=== PATIENT | female | born 1940 | race Caucasian/White ===

== ENCOUNTER → 2017-08-28 | Outpatient (CLI) | payer MEDICARE, OTHER ==
[~2017-08-28] MED LIST: CLON1 PO; METH1TAB2 PO
[2017-08-28 10:07] LABS: AUTOMATED NEUTROPHIL # 4.8 TH/MM3 (1.8-7.7); BASOPHIL % 0.6 % (0.0-2.0); EOSINOPHIL # 0.2 TH/MM3 (0-0.4); EOSINOPHIL % 2.2 % (0.0-4.0); HEMATOCRIT 40.8 % (35.0-46.0); HEMOGLOBIN 13.4 GM/DL (11.6-15.3); LYMPH % 35.6 % (9.0-44.0); LYMPHOCYTE # 3.1 TH/MM3 (1.0-4.8); MEAN CELL VOLUME 81.6 FL (80.0-100.0); MEAN CORPUSCULAR HEMOGLOBIN 26.9 PG (27.0-34.0); MEAN CORPUSCULAR HGB CONC 32.9 % (32.0-36.0); MEAN PLATELET VOLUME 11.1 FL (7.0-11.0); MONO % 6.4 % (0.0-8.0); MONOCYTE # 0.6 TH/MM3 (0-0.9); NEUT % 55.2 % (16.0-70.0); PLATELET COUNT 126 TH/MM3 (150-450); RED CELL DISTRIBUTION WIDTH 14.8 % (11.6-17.2); WHITE BLOOD COUNT 8.6 TH/MM3 (4.0-11.0)
[2017-08-28 10:17] LABS: INTERNATIONAL NORMALIZED RATIO 1.1 RATIO; PROTHROMBIN TIME - PATIENT 11.4 SEC (9.8-11.6)
[2017-08-28 10:31] LABS: BICARBONATE 24.7 MEQ/L (21.0-32.0); CALCIUM 8.8 MG/DL (8.5-10.1); CREATININE 0.86 MG/DL (0.50-1.00)
== END ==
LOC: CLAB 09:33
PROVIDERS: ATTEND Internal Medicine Hematology
DX: D69.6 Thrombocytopenia, unspecified (principal); R16.1 Splenomegaly, not elsewhere classified; R19.4 Change in bowel habit
CPT/HCPCS: 80048; 85025; 85610; 85730

== ENCOUNTER 2017-09-02 06:14 | Day surgery (SDC) | payer MEDICARE, OTHER ==
[~2017-09-02] VITALS: Ht 165.1 cm; Wt 65.0 kg
[2017-09-02] VITALS (12 sets, daily range): BP systolic 94–127; BP diastolic 52–70; PULSE 59–82; RESP 18–20; TEMP 97.2–97.6; O2SAT 92–96
[2017-09-02] MEDS ORDERED: METH1TAB2 PO (06:52)
[2017-09-02] MEDS ORDERED: CLON1 PO (06:52)
[2017-09-02] MEDS: SODIUM CHLOR 0.9% 1000 ML INJ 1,000 ML IV SCH (07:17)
[2017-09-02] MEDS ORDERED: MIDAZOLAM HCL 2 MG/2 ML VIAL ONE ×3 (08:05→14:35)
--- NOTE | 2017-09-02 08:48 | PD.RAD ---
Post CT Procedure Prog Note Pre Procedure Diagnosis: (1) Left upper lobe consolidation Post Procedure Diagnosis: (1) Left upper lobe consolidation Procedure Date: Sep 02, 2017 Supervising Radiologist: Jasbir Rajan Anesthesia: Conscious Sedation Plan of Activity Patient to Unit: ROPU Patient Condition: Good See PACS Report for procedural detail/treatment Biopsy Imaging Guidance: CT Side: Left Biopsy Procedure: Lung Site: left upper lobe Specimen: Core Biopsy Additional Detail: 7 cores obtained. Plan to ROPU for monitoring with cxr in one hour. Jasbir Rajan MD Sep 02, 2017 08:48
--- NOTE | 2017-09-02 09:56 | RADRPT ---
EXAM DATE: 09/02/2017 9:16 AM EDT AGE/SEX: 76 years / Female INDICATIONS: Left lung mass CLINICAL DATA: This is the patient's initial encounter. Patient reports that signs and symptoms have been present for 1 day and indicates a pain score of 0/10. MEDICAL/SURGICAL HISTORY: Chronic obstructive pulmonary disease. None. COMPARISON: [facility], PET/CT TUMOR, 09/01/2017. POI, CT CHEST W/ CONTRAST, 08/15/2017. . SEDATION TIME (min): 20 min BIOPSY SITE: Left lung MEDICATION(S): 3 midazolam (Versed) IV 100 fentanyl (Sublimaze) IV DEVICE(S): 19 gauge Introducer 20 gauge BARD biopsy needle Seven . . PROCEDURE: CT guided Left lung biopsy Prior to the procedure informed consent was obtained. Any appropriate prior imaging studies were rev iewed. Using automated exposure control and adjustment of the mA and/or kV according to patient size , radiation dose was kept as low as reasonably achievable to obtain optimal diagnostic quality images . DICOM format image data is available electronically for review and comparison. The site was prepped in a sterile fashion. Full sterile technique was used, including cap, mask, jailene rile gloves and gown and a large sterile sheet. Hand hygiene and 2% chlorhexidine and/or betadine/al cohol prep was utilized per protocol for cutaneous antisepsis. The skin and subcutaneous tissues wer e infiltrated with local anesthetic solution. With CT guidance the left upper lobe consolidative mass was localized. Biopsy was performed using the prescribed needle as above. Adequate hemostasis was obtained with compression at the puncture site. Follow-up CT scan reveals minimal left pneumothorax. There is perilesional hemorrhage. Conscious sedation was performed with the prescribed dosages and duration as above in the presence of an independent trained radiology nurse to assist in the monitoring of the patient. EKG and oximetry remained stable throughout the procedure. The patient tolerated the procedure well and there were no complications. The patient was sent to Radiology Outpatient Unit in stable condition. CONCLUSION: 1. Uncomplicated CT guided biopsy of the left upper lobe consolidative mass. Given the appearance an d patient history, samples were saved for pathology including RPMI and microbiology. Electronically signed by: Jasbir Rajan MD 09/02/2017 9:55 AM EDT
--- NOTE | 2017-09-02 10:24 | RADRPT ---
EXAM DATE: 09/02/2017 10:18 AM EDT AGE/SEX: 76 years / Female INDICATIONS: Evaluate for pneumothorax post left lung biopsy CLINICAL DATA: This is the patient's subsequent encounter. Patient reports that signs and symptoms h ave been present for 1 day and indicates a pain score of 0/10. MEDICAL/SURGICAL HISTORY: . lung mass None. COMPARISON: No prior [facility] exams available for comparison. FINDINGS: Portable AP upright expiratory view of the chest demonstrates minimal left apical pneumothorax follow ing recent left upper lobe lung mass biopsy. The left upper lobe opacity remains visualized. CONCLUSION: Minimal pneumothorax following left lung biopsy. An additional follow-up chest x-ray will be obtained . Electronically signed by: Jasbir Rajan MD 09/02/2017 10:22 AM EDT
--- NOTE | 2017-09-02 12:12 | RADRPT ---
EXAM DATE: 09/02/2017 12:06 PM EDT AGE/SEX: 76 years / Female INDICATIONS: post left lung biopsy evaluate for pneumothorax CLINICAL DATA: This is the patient's subsequent encounter. Patient reports that signs and symptoms h ave been present for 1 day and indicates a pain score of 0/10. MEDICAL/SURGICAL HISTORY: Carcinoma, lung. Chronic obstructive pulmonary disease. None. COMPARISON: [facility] – [place], CHEST EXPIRATION ONLY, 09/02/2017. . FINDINGS: Portable upright expiratory view of the chest demonstrates a small left apical pneumothorax, slightly increased in size from the prior study. The left upper lobe airspace opacity remains visualized. The re are no signs of tension. CONCLUSION: The small left pneumothorax has slightly increased in size. Additional follow-up chest x-ray will be obtained. Electronically signed by: Jasbir Rajan MD 09/02/2017 12:10 PM EDT
--- NOTE | 2017-09-02 14:08 | RADRPT ---
EXAM DATE: 09/02/2017 1:37 PM EDT AGE/SEX: 76 years / Female INDICATIONS: Evaluate left lung for pneumothorax post needle biopsy CLINICAL DATA: This is the patient's subsequent encounter. Patient reports that signs and symptoms h ave been present for 1 day and indicates a pain score of 0/10. MEDICAL/SURGICAL HISTORY: . lung mass . needle biopsy left lung COMPARISON: [facility] – [place], CHEST EXPIRATION ONLY, 09/02/2017. [facility] [place], CHEST EXPIRATION ONLY, 09/02/2017. . FINDINGS: Portable upright expiratory view of the chest demonstrates a left pneumothorax that again has slightl y increased in size. There are no signs of tension. No pleural effusion is identified. Otherwise, the re has been no interval change. CONCLUSION: Persistent left pneumothorax that has again slightly increased in size. Electronically signed by: Jasbir Rajan MD 09/02/2017 2:07 PM EDT
--- NOTE | 2017-09-02 15:21 | PD.RAD ---
Post Procedure Progress Note Pre Procedure Diagnosis: (1) Pneumothorax, post biopsy, left Post Procedure Diagnosis: (1) Pneumothorax, post biopsy, left Procedure Date: Sep 02, 2017 Supervising Radiologist: Hamilton Lees JR Proceduralist/Assist: JONNY Polk, RT(R)(CV), Michelle Velásquez, RT(R) Anesthesia: Conscious Sedation Plan of Activity Patient to Unit: ROPU Patient Condition: Good See PACS Report for procedural detail/treatment Drainage Procedure Procedure 1 Imaging Guidance: Fluoroscopy Side: Left Procedure Type: Chest Tube Non-Tunneled Procedure: Placement Senegalese: 10 Drainage: Pleurovac Findings: Left chest tube placed without difficulty. Sutured in place. Jr. Nabeel,Hamilton Carvalho MD Sep 02, 2017 15:21
[2017-09-02] MEDS: oxyCODONE/ACETAMINOPHEN 5 MG/325 MG TAB PO PRN ×2 (16:35→20:51)
--- NOTE | 2017-09-02 16:55 | RADRPT ---
EXAM DATE: 09/02/2017 4:00 PM EDT AGE/SEX: 76 years / Female INDICATIONS: Left lung biopsy. Evaluate pneumothorax. CLINICAL DATA: This is the patient's initial encounter. Patient reports that signs and symptoms have been present for 1 day and indicates a pain score of 0/10. MEDICAL/SURGICAL HISTORY: None. None. [place] [facility] [place]G, LEFT, 09/02/2017. . FINDINGS: A pigtail thoracostomy tube is in good position in the medial left lung apex. There has been resoluti on of pneumothorax. Vascular crowding is exacerbated by expiratory technique. Left upper lobe mass is again noted. Cardiac contours are grossly stable. No significant effusion. CONCLUSION: Interval thoracostomy tube placement. Resolution of pneumothorax. Electronically signed by: Jasbir Rouse MD 09/02/2017 4:53 PM EDT
--- NOTE | 2017-09-02 17:02 | RADRPT ---
EXAM DATE: 09/02/2017 3:34 PM EDT AGE/SEX: 76 years / Female INDICATIONS: Patient with pneumothorax post left lung biopsy in need of chest tube placement. CLINICAL DATA: This is the patient's initial encounter. Patient reports that signs and symptoms have been present for 1 day and indicates a pain score of 0/10. MEDICAL/SURGICAL HISTORY: Chronic obstructive pulmonary disease. Sleep apnea Recurrent UTI Lymp valdez Lung mass Thrombocytopenia Bladder surgery COMPARISON: . FLUORO TIME (min): 0.5 IMAGE SERIES: 1 ACCESS SITE: SEDATION TIME (min): 20 MEDICATION(S): 1.5mg midazolam (Versed) IV 75mcg fentanyl (Sublimaze) IV DEVICE(S): 10 Portuguese non-locking catheter [place] . . PROCEDURE: 1. Fluoroscopically guided chest tube placement. 2. Conscious sedation with continuous EKG and oximetry monitoring. The risks, benefits and alternatives to the procedure were explained and verbal and written consent w as obtained. The site was prepped in sterile fashion. Full sterile technique was used, including ca p, mask, sterile gloves and gown and a large sterile sheet. Hand hygiene and 2% chlorhexidine and/or betadine/alcohol prep was utilized per protocol for cutaneous antisepsis. The skin and subcutaneous tissues were infiltrated with local anesthetic solution. With fluoroscopic guidance the left chest was punctured between the first and second interspace and t he prescribed catheter was placed in the lung apex. Wall suction was applied. Post procedure images demonstrate satisfactory position of the tube. The catheter was sutured in place and a Percu-Stay wa s applied. Conscious sedation was performed with the prescribed dosages and duration as above in the presence of an independent trained radiology nurse to assist in the monitoring of the patient. EKG and oximetry remained stable throughout the procedure. The patient tolerated the procedure well and there were n o complications. The patient was sent to post anesthesia recovery in stable condition. CONCLUSION: 1. Uncomplicated left chest tube placement as above. Electronically signed by: Hamilton Lees MD 09/02/2017 5:01 PM EDT
--- NOTE | 2017-09-02 17:10 | PD.CONS ---
[facility] By [facility]. Rajan Reason for Consult Medical management Primary Care Physician Luana Norman MD Diagnoses: History of Present Illness The patient is a 76-year-old female with recent diagnosis of lymphoma who is presenting to the hospital for voluntary lung biopsy which was complicated by left-sided pneumothorax. Medicine has been consulted for medical management. The patient says that she was diagnosed with lymphoma during Marisela time. She follows with Dr. Dias for that. She said she had a CT scan done recently which showed a mass in her left lung. She was scheduled for a biopsy of the mass today, but after the procedure she sustained a left-sided pneumothorax. The patient denies any shortness of breath. She does endorse a dull ache in the upper left of her back. Otherwise she has no symptoms. The patient is anxious about getting the biopsy results back. She says that she has a follow- up appointment with her oncologist on Friday. Discussed with nursing. Review of Systems Except as stated in HPI: all other systems reviewed are Neg Past Family Social History Allergies: Coded Allergies: Sulfa (Sulfonamide Antibiotics) (Verified Allergy, Severe, Hives, 09/02/17) Past Medical History Lymphoma COPD Past Surgical History Bladder surgery 2 Family History Breast cancer Colon cancer Lung cancer Social History The patient quit smoking in 1976. She drinks alcohol socially. Physical Exam Vital Signs Vital Signs Date Time Temp Pulse Resp B/P (MAP) Pulse Ox O2 Delivery O2 Flow Rate FiO2 09/02/17 16:30 82 18 94/57 (69) 93 09/02/17 16:00 76 18 108/69 (82) 93 09/02/17 15:30 82 18 99/70 (80) 93 09/02/17 15:15 73 18 125/69 (87) 96 09/02/17 13:15 66 18 104/59 (74) 95 09/02/17 11:15 65 18 97/52 (67) 95 09/02/17 10:15 59 18 98/54 (69) 92 09/02/17 09:45 67 18 103/53 (70) 93 09/02/17 09:15 64 18 102/57 (72) 93 09/02/17 09:00 97.5 68 18 106/63 (77) 93 09/02/17 07:02 97.6 68 18 113/65 (81) 96 09/02/17 07:00 Room Air Physical Exam GENERAL: This is a well-nourished, well-developed patient, in no apparent distress. SKIN: No rashes, ecchymoses or lesions. Cool and dry. HEAD: Atraumatic. Normocephalic. No temporal or scalp tenderness. EYES: Pupils equal round and reactive. Extraocular motions intact. No scleral icterus. No injection or drainage. ENT: Nose without bleeding, purulent drainage or septal hematoma. Throat without erythema, tonsillar hypertrophy or exudate. Uvula midline. Airway patent. NECK: Trachea midline. No JVD or lymphadenopathy. Supple, nontender, no meningeal signs. CARDIOVASCULAR: Regular rate and rhythm without murmurs, gallops, or rubs. RESPIRATORY: Clear to auscultation. Breath sounds equal bilaterally. No wheezes , rales, or rhonchi. GASTROINTESTINAL: Abdomen soft, non-tender, nondistended. No hepato-splenomegaly , or palpable masses. No guarding. MUSCULOSKELETAL: Extremities without clubbing, cyanosis, or edema. No joint tenderness, effusion, or edema noted. NEUROLOGICAL: Awake and alert. Cranial nerves II through XII intact. Motor and sensory grossly within normal limits. Five out of 5 muscle strength in all muscle groups. Normal speech. Laboratory Laboratory Tests Test 09/02/17 08:45 Date/Time Source Procedure Growth Status 09/02/17 08:45 Wound Lung Fungal Smear - Final NO FUNGAL ELEMENTS SEEN. Resulted 09/02/17 08:45 Wound Lung Fungal Culture Pending Resulted Imaging Last Impressions Chest X-Ray 09/02/17 1300 Signed Impressions: CONCLUSION: Persistent left pneumothorax that has again slightly increased in size. Lung Biopsy CT 09/02/17 0710 Signed Impressions: CONCLUSION: 1. Uncomplicated CT guided biopsy of the left upper lobe consolidative mass. G iven the appearance and patient history, samples were saved for pathology inclu rashard BOLTON and microbiology. Assessment and Plan Assessment and Plan Left pneumothorax Following lung mass biopsy on 09/02/2017. Chest tube has been placed by interventional radiology. - Chest tube management per radiology. - Oxygen and nebs as needed. - Incentive spirometry. Lymphoma/ Left lung mass Recently diagnoses. S/p biopsy of lung mass. - outpt follow-up with oncology on Friday. Hypotension Blood pressure has been on the low side. - fluids as needed. PPx: SCDs Discussed Condition With Pt, nurse Daniel Mcnulty DO Sep 02, 2017 17:10
[2017-09-02] MEDS ORDERED: RESP: ALBUTEROL 2.5 MG/IPRATROPIUM 0.5 MG NEB (PRN) NEB (17:15)
[2017-09-02] MEDS: DOCUSATE SODIUM 50 MG/SENNA 8.6 MG TAB PO SCH (20:50)
[2017-09-02] MEDS ORDERED: clonazePAM 1 MG TAB PO SCH (21:00)
[2017-09-03] VITALS: BP 127/58; PULSE 77; RESP 20; TEMP 97.2; O2SAT 93
[2017-09-03] MEDS: SODIUM CHLOR 0.9% 1000 ML INJ 1,000 ML IV SCH (07:15)
--- NOTE | 2017-09-03 07:17 | RADRPT ---
EXAM DATE: 09/03/2017 7:08 AM EDT AGE/SEX: 76 years / Female INDICATIONS: Short of breath. CLINICAL DATA: This is the patient's initial encounter. Patient reports that signs and symptoms have been present for 1 day and indicates a pain score of 0/10. MEDICAL/SURGICAL HISTORY: None. None. COMPARISON: [facility] – [place], [place] EXPIR[place], 09/02/2017. . FINDINGS: Small caliber left chest tube remains in place. Tip is at the apex. No pneumothorax. Trace basilar atelectasis. No large effusions seen. Heart size stable, within normal limits. CONCLUSION: No significant change. Left chest tube remains in place. No pneumothorax seen. Electronically signed by: Jasbir Faustin MD 09/03/2017 7:16 AM EDT
[2017-09-03 08:00] VITALS: BP 128/61; PULSE 72; RESP 18; TEMP 97.4; O2SAT 95
[2017-09-03 08:47] LABS: HEMATOCRIT 39.4 % (35.0-46.0); HEMOGLOBIN 12.9 GM/DL (11.6-15.3); MEAN CELL VOLUME 82.1 FL (80.0-100.0); MEAN CORPUSCULAR HEMOGLOBIN 26.9 PG (27.0-34.0); MEAN CORPUSCULAR HGB CONC 32.8 % (32.0-36.0); MEAN PLATELET VOLUME 11.1 FL (7.0-11.0); PLATELET COUNT 88 TH/MM3 (150-450); RED CELL DISTRIBUTION WIDTH 14.6 % (11.6-17.2); WHITE BLOOD COUNT 7.4 TH/MM3 (4.0-11.0)
[2017-09-03 09:01] LABS: BICARBONATE 23.2 MEQ/L (21.0-32.0); CREATININE 0.53 MG/DL (0.50-1.00)
[2017-09-03] MEDS: DOCUSATE SODIUM 50 MG/SENNA 8.6 MG TAB PO SCH (09:03)
[2017-09-03] MEDS ORDERED: PROMETHAZINE HCL 25 MG SUPP RECTAL PRN (10:45)
[2017-09-03] MEDS ORDERED: METOCLOPRAMIDE HCL 10 MG/2 ML VIAL IV PUSH PRN (10:45)
[2017-09-03] MEDS ORDERED: NALOXONE HCL 0.4 MG/ML AMP IV PUSH PRN (10:45)
[2017-09-03] MEDS ORDERED: oxyCODONE/ACETAMINOPHEN 5 MG/325 MG TAB PO PRN (10:45)
[2017-09-03] MEDS ORDERED: oxyCODONE/ACETAMINOPHEN 10 MG/325 MG TAB PO PRN (10:45)
[2017-09-03] MEDS ORDERED: ACETAMINOPHEN 325 MG TAB PO PRN (10:45)
[2017-09-03] MEDS ORDERED: ONDANSETRON ODT 4 MG TAB PO PRN (10:45)
[2017-09-03] MEDS ORDERED: MORPHINE SULFATE 4 MG/ML INJ IV PUSH PRN ×2 (10:45)
[2017-09-03 12:00] VITALS: BP 146/54; PULSE 70; RESP 18; TEMP 97.4; O2SAT 94
--- NOTE | 2017-09-03 12:19 | RADRPT ---
EXAM DATE: 09/03/2017 12:11 PM EDT AGE/SEX: 76 years / Female INDICATIONS: Pneumothorax. CLINICAL DATA: This is the patient's subsequent encounter. Patient reports that signs and symptoms h ave been present for 2 days and indicates a pain score of 3/10. MEDICAL/SURGICAL HISTORY: Chronic obstructive pulmonary disease. None. COMPARISON: [facility] – [place], CHEST EXPIRATION ONLY, 09/03/2017. . FINDINGS: Left apical pigtail thoracostomy tube is stable in position. There is no evidence of pneumothorax. Stephani ngs are stable. Likely small left effusion. Cardiac contours are unchanged. CONCLUSION: No pneumothorax Electronically signed by: Jasbir Rouse MD 09/03/2017 12:18 PM EDT
--- NOTE | 2017-09-03 14:16 | RADRPT ---
EXAM DATE: 09/03/2017 2:11 PM EDT AGE/SEX: 76 years / Female INDICATIONS: Post chest tube removal. CLINICAL DATA: This is the patient's initial encounter. Patient reports that signs and symptoms have been present for 1 day and indicates a pain score of 0/10. MEDICAL/SURGICAL HISTORY: None. None. [place] [facility] [place]. . FINDINGS: A single frontal expiratory view of the chest was performed. The lungs are symmetrically aerated and clear. No evidence of pneumothorax. Mediastinal structures are in the midline. A single frontal ex piratory view of the chest was performed. The lungs are symmetrically aerated and clear. No evidenc e of pneumothorax. Mediastinal structures are in the midline. CONCLUSION: No pneumothorax following chest tube removal. Electronically signed by: Hamilton Lees MD 09/03/2017 2:15 PM EDT
--- NOTE | 2017-09-03 15:43 | HHI.PR ---
Subjective Remarks The patient is a 76-year-old female with recent diagnosis of lymphoma who is presenting to the hospital for voluntary lung biopsy which was complicated by left-sided pneumothorax. Medicine has been consulted for medical management. The patient says that she was diagnosed with lymphoma during [place] time. She follows with Dr. Dias for that. She said she had a CT scan done recently which showed a mass in her left lung. She was scheduled for a biopsy of the mass today, but after the procedure she sustained a left-sided pneumothorax. The patient denies any shortness of breath. She does endorse a dull ache in the upper left of her back. Otherwise she has no symptoms. The patient is anxious about getting the biopsy results back. She says that she has a follow- up appointment with her oncologist on Friday. Discussed with nursing. 6-6 HAD CHEST TUBE REMOVED TODAY HAD NAUSEA BUT RESOLVED WITH ZOFRAN WANTS TO GO HOME GOOD LUNG SOUNDS ALL BARDALES DC TO HOME WITH ZOFRAN AND INCENTIVE SPIROMETRY Objective Vitals Vital Signs Date Time Temp Pulse Resp B/P (MAP) Pulse Ox O2 Delivery O2 Flow Rate FiO2 09/03/17 12:00 97.4 70 18 146/54 (84) 94 09/03/17 08:00 97.4 72 18 128/61 (83) 95 09/03/17 00:00 97.2 77 20 127/58 (81) 93 09/02/17 20:00 97.2 73 20 127/67 (87) 96 09/02/17 16:30 82 18 94/57 (69) 93 09/02/17 16:00 76 18 108/69 (82) 93 I/O 09/02/17 09/02/17 09/02/17 09/03/17 09/03/17 09/03/17 07:00 15:00 23:00 07:00 15:00 23:00 Intake Total 300 ml 240 ml Balance 300 ml 240 ml Intake Oral 240 ml IV Total 300 ml # Voids 2 # Bowel Movements 0 Result Diagram: 09/03/17 0715 09/03/17 0715 Other Results Laboratory Tests Test 09/03/17 07:15 White Blood Count 7.4 TH/MM3 Red Blood Count 4.80 MIL/MM3 Hemoglobin 12.9 GM/DL Hematocrit 39.4 % Mean Corpuscular Volume 82.1 FL Mean Corpuscular Hemoglobin 26.9 PG Mean Corpuscular Hemoglobin Concent 32.8 % Red Cell Distribution Width 14.6 % Platelet Count 88 TH/MM3 Mean Platelet Volume 11.1 FL Blood Urea Nitrogen 14 MG/DL Creatinine 0.53 MG/DL Random Glucose 96 MG/DL Calcium Level 9.0 MG/DL Magnesium Level 2.0 MG/DL Sodium Level 140 MEQ/L Potassium Level 4.0 MEQ/L Chloride Level 106 MEQ/L Carbon Dioxide Level 23.2 MEQ/L Anion Gap 11 MEQ/L Estimat Glomerular Filtration Rate 112 ML/MIN Imaging Last Impressions Chest X-Ray 09/03/17 1400 Signed Impressions: CONCLUSION: No pneumothorax following chest tube removal. Lung Biopsy CT 09/02/17 0710 Signed Impressions: CONCLUSION: 1. Uncomplicated CT guided biopsy of the left upper lobe consolidative mass. G burt the appearance and patient history, samples were saved for pathology inclu rashard BOLTON and microbiology. Chest Tube Insertion 09/02/17 0000 Signed Impressions: CONCLUSION: 1. Uncomplicated left chest tube placement as above. Objective Remarks GENERAL: Awake alert and oriented 3 talkative and cooperative appears stated age SKIN: Warm and dry. HEAD: Atraumatic. Normocephalic. EYES: Pupils equal and round. No scleral icterus. No injection or drainage. Extraocular muscles intact ENT: No nasal bleeding or discharge. Mucous membranes pink and moist. Tongue is midline NECK: Trachea midline. No JVD. Supple S1-S2 no S3 or S4 CARDIOVASCULAR: Regular rate and rhythm. RESPIRATORY: No accessory muscle use. Clear to auscultation. Breath sounds equal bilaterally. Good breath sounds in all lung bardales GASTROINTESTINAL: Abdomen soft, non-tender, nondistended. Hepatic and splenic margins not palpable. MUSCULOSKELETAL: Extremities without clubbing, cyanosis, or edema. No obvious deformities. NEUROLOGICAL: Awake and alert. No obvious cranial nerve deficits. Motor grossly within normal limits. Five out of 5 muscle strength in the arms and legs. Normal speech. PSYCHIATRIC: Appropriate mood and affect; insight and judgment normal. Procedures (1) Left upper lobe consolidation Post Procedure Diagnosis: (1) Left upper lobe consolidation Procedure Date: Sep 02, 2017 Supervising Radiologist: Jasbir Rajan Anesthesia: Conscious Sedation Plan of Activity Patient to Unit: ROPU Patient Condition: Good See PACS Report for procedural detail/treatment Biopsy Imaging Guidance: CT Side: Left Biopsy Procedure: Lung Site: left upper lobe Specimen: Core Biopsy Additional Detail: 7 cores obtained. Plan to ROPU for monitoring with cxr in one hour. (1) Pneumothorax, post biopsy, left Post Procedure Diagnosis: (1) Pneumothorax, post biopsy, left Procedure Date: Sep 02, 2017 Supervising Radiologist: Hamilton Lees JR Proceduralist/Assist: JONNY Polk, RT(R)(CV), Michelle Velásquez RT(R) Anesthesia: Conscious Sedation Plan of Activity Patient to Unit: ROPU Patient Condition: Good See PACS Report for procedural detail/treatment Drainage Procedure Procedure 1 Imaging Guidance: Fluoroscopy Side: Left Procedure Type: Chest Tube Non-Tunneled Procedure: Placement Cymro: 10 Drainage: Pleurovac Findings: Left chest tube placed without difficulty. Sutured in place. Medications and IVs Current Medications Sodium Chloride 1,000 ml @ 30 mls/hr Q24H IV Last administered on 09/02/17at 07: 17; Start 09/02/17 at 07:15 Fentanyl Citrate (fentaNYL INJ) 100 mcg STK-MED ONCE .ROUTE Last administered on 09/02/17at 08:05; Start 09/02/17 at 08:05; Stop 09/02/17 at 08:06; Status DC Midazolam HCl (Versed Inj) 2 mg STK-MED ONCE .ROUTE Last administered on at 08:05; Start 09/02/17 at 08:05; Stop 09/02/17 at 08:06; Status DC Midazolam HCl (Versed Inj) 2 mg STK-MED ONCE .ROUTE Last administered on at 08:30; Start 09/02/17 at 08:30; Stop 09/02/17 at 08:31; Status DC Oxycodone/ Acetaminophen (Percocet 5-325 Mg) 1 tab Q4H PRN PO PAIN SCALE 1 TO 10 Last administered on 09/02/17at 20:51; Start 09/02/17 at 08:45; Stop 09/03/17 at 10:51; Status DC Fentanyl Citrate (fentaNYL INJ) 100 mcg STK-MED ONCE .ROUTE ; Start 09/02/17 at 14:35; Stop 09/02/17 at 14:36; Status DC Midazolam HCl (Versed Inj) 2 mg STK-MED ONCE .ROUTE ; Start 09/02/17 at 14:35; Stop 09/02/17 at 14:36; Status DC Senna/Docusate Sodium (Cheryl-Colace) 1 tab BID PO Last administered on 09/03/17at 09:03; Start 09/02/17 at 21:00 Albuterol/ Ipratropium (Duoneb Neb) 1 ampule Q2HR NEB PRN NEB dyspnea; Start at 17:15 Clonazepam (KlonoPIN) 1 mg HS PO Last administered on 09/02/17at 20:50; Start 09/02/17 at 21:00 Ondansetron HCl (Zofran Odt) 4 mg Q6H PRN PO NAUSEA Last administered on at 10:58; Start 09/03/17 at 10:45 Metoclopramide HCl (Reglan Inj) 10 mg Q6H PRN IV PUSH NAUSEA; Start 09/03/17 at 10:45 Promethazine HCl (Phenergan Supp) 25 mg Q6H PRN RECTAL NAUSEA; Start 09/03/17 at 10:45 Acetaminophen (Tylenol) 650 mg Q6H PRN PO PAIN SCALE 1 TO 2; Start 09/03/17 at 10:45 Oxycodone/ Acetaminophen (Percocet 5-325 Mg) 1 tab Q6H PRN PO PAIN SCALE 3 TO 5; Start 09/03/17 at 10:45 Oxycodone/ Acetaminophen (Percocet 10-325 Mg) 1 tab Q6H PRN PO PAIN SCALE 6 TO 10; Start 09/03/17 at 10:45 Morphine Sulfate (Morphine Inj) 2 mg Q3H PRN IV PUSH Pain 3-5; if unable to take PO; Start 09/03/17 at 10:45 Morphine Sulfate (Morphine Inj) 4 mg Q3H PRN IV PUSH Pain 6-10;if unable to take PO; Start 09/03/17 at 10:45 Naloxone HCl (Narcan Inj) 0.4 mg UNSCH PRN IV PUSH SEE LABEL COMMENTS; Start at 10:45 A/P Assessment and Plan Left pneumothorax Following lung mass biopsy on 09/02/2017. Chest tube has been placed by interventional radiology. - Chest tube management per radiology. - Oxygen and nebs as needed. - Incentive spirometry. Lymphoma/ Left lung mass Recently diagnoses. S/p biopsy of lung mass. - outpt follow-up with oncology on Friday. Hypotension Blood pressure has been on the low side. - fluids as needed. Thrombocytopenia-noted on CBC Follow-up with PCP Dr. Maki and Dr. Dias of oncology PPx: SCDs Discharge Planning Discharge to home today Rodrigo Ontiveros DO Sep 03, 2017 15:43
[2017-09-03] MEDS ORDERED: ONDA4TAB7 PO (15:45)
--- NOTE | 2017-09-03 15:47 | HHI.DS ---
Discharge Summary Admission Date 09/02/17 Discharge Date: Sep 03, 2017 Admitting Diagnosis SP LUNG BIOPSY PNEUMOTHORAX ON THE LEFT (1) Pneumothorax, post biopsy, left ICD Code: J95.811 - Postprocedural pneumothorax Diagnosis: Principal (2) Left upper lobe consolidation ICD Code: J18.1 - Lobar pneumonia, unspecified organism Diagnosis: Principal Procedures (1) Left upper lobe consolidation Post Procedure Diagnosis: (1) Left upper lobe consolidation Procedure Date: Sep 02, 2017 Supervising Radiologist: Jasbir Rajan Anesthesia: Conscious Sedation Plan of Activity Patient to Unit: ROPU Patient Condition: Good See PACS Report for procedural detail/treatment Biopsy Imaging Guidance: CT Side: Left Biopsy Procedure: Lung Site: left upper lobe Specimen: Core Biopsy Additional Detail: 7 cores obtained. Plan to ROPU for monitoring with cxr in one hour. (1) Pneumothorax, post biopsy, left Post Procedure Diagnosis: (1) Pneumothorax, post biopsy, left Procedure Date: Sep 02, 2017 Supervising Radiologist: Hamilton Lees JR Proceduralist/Assist: JONNY Polk, RT(R)(CV), Michelle Velásquez RT(R) Anesthesia: Conscious Sedation Plan of Activity Patient to Unit: ROPU Patient Condition: Good See PACS Report for procedural detail/treatment Drainage Procedure Procedure 1 Imaging Guidance: Fluoroscopy Side: Left Procedure Type: Chest Tube Non-Tunneled Procedure: Placement Estonian: 10 Drainage: Pleurovac Findings: Left chest tube placed without difficulty. Sutured in place. Brief History - From Admission The patient is a 76-year-old female with recent diagnosis of lymphoma who is presenting to the hospital for voluntary lung biopsy which was complicated by left-sided pneumothorax. Medicine has been consulted for medical management. The patient says that she was diagnosed with lymphoma during [place] time. She follows with Dr. Dias for that. She said she had a CT scan done recently which showed a mass in her left lung. She was scheduled for a biopsy of the mass today, but after the procedure she sustained a left-sided pneumothorax. The patient denies any shortness of breath. She does endorse a dull ache in the upper left of her back. Otherwise she has no symptoms. The patient is anxious about getting the biopsy results back. She says that she has a follow- up appointment with her oncologist on Friday. Discussed with nursing. CBC/BMP: 09/03/17 0715 09/03/17 0715 Significant Findings Laboratory Tests Test 09/03/17 07:15 Mean Corpuscular Hemoglobin 26.9 PG (27.0-34.0) Platelet Count 88 TH/MM3 (150-450) Mean Platelet Volume 11.1 FL (7.0-11.0) Imaging Last Impressions Chest X-Ray 09/03/17 1400 Signed Impressions: CONCLUSION: No pneumothorax following chest tube removal. Lung Biopsy CT 09/02/17 0710 Signed Impressions: CONCLUSION: 1. Uncomplicated CT guided biopsy of the left upper lobe consolidative mass. G iven the appearance and patient history, samples were saved for pathology inclu [facility] and microbiology. Chest Tube Insertion 09/02/17 0000 Signed Impressions: CONCLUSION: 1. Uncomplicated left chest tube placement as above. PE at Discharge GENERAL: Awake alert and oriented 3 talkative and cooperative appears stated age SKIN: Warm and dry. HEAD: Atraumatic. Normocephalic. EYES: Pupils equal and round. No scleral icterus. No injection or drainage. Extraocular muscles intact ENT: No nasal bleeding or discharge. Mucous membranes pink and moist. Tongue is midline NECK: Trachea midline. No JVD. Supple S1-S2 no S3 or S4 CARDIOVASCULAR: Regular rate and rhythm. RESPIRATORY: No accessory muscle use. Clear to auscultation. Breath sounds equal bilaterally. Good breath sounds in all lung devries GASTROINTESTINAL: Abdomen soft, non-tender, nondistended. Hepatic and splenic margins not palpable. MUSCULOSKELETAL: Extremities without clubbing, cyanosis, or edema. No obvious deformities. NEUROLOGICAL: Awake and alert. No obvious cranial nerve deficits. Motor grossly within normal limits. Five out of 5 muscle strength in the arms and legs. Normal speech. PSYCHIATRIC: Appropriate mood and affect; insight and judgment normal. Hospital Course The patient is a 76-year-old female with recent diagnosis of lymphoma who is presenting to the hospital for voluntary lung biopsy which was complicated by left-sided pneumothorax. Medicine has been consulted for medical management. The patient says that she was diagnosed with lymphoma during [place] time. She follows with Dr. Dias for that. She said she had a CT scan done recently which showed a mass in her left lung. She was scheduled for a biopsy of the mass today, but after the procedure she sustained a left-sided pneumothorax. The patient denies any shortness of breath. She does endorse a dull ache in the upper left of her back. Otherwise she has no symptoms. The patient is anxious about getting the biopsy results back. She says that she has a follow- up appointment with her oncologist on Friday. Discussed with nursing. 6-6 HAD CHEST TUBE REMOVED TODAY HAD NAUSEA BUT RESOLVED WITH ZOFRAN WANTS TO GO HOME GOOD LUNG SOUNDS ALL DEVRIES DC TO HOME WITH ZOFRAN AND INCENTIVE SPIROMETRY Pt Condition on Discharge: Good Discharge Disposition: Discharge Home Discharge Time: <= 30 minutes Discharge Instructions DIET: Follow Instructions for: As Tolerated, No Restrictions Speech Therapy-Diet Recommends: Regular Activities you can perform: Regular-No Restrictions, Shower Only-No Bath Follow up Referrals: Oncology/Hematology - 1 Week with León Dias III, MD PCP Follow-up - 3-5 Days with Luana Norman MD New Medications: Ondansetron Odt (Ondansetron Odt) 4 Mg Tab 4 MG PO Q6H PRN for NAUSEA, #10 TAB Continued Medications: Clonazepam (Klonopin) 1 Mg Tab 1 MG PO HS, #60 TAB 0 Refills Methenamine Hippurate (Methenamine Hippurate) 1 Gram Tab 1 GM PO HS for Infection, TAB 0 Refills Rodrigo Ontiveros DO Sep 03, 2017 15:47
--- NOTE | 2017-09-04 11:20 | RADRPT ---
EXAM DATE: 09/04/2017 10:23 AM EDT AGE/SEX: 76 years / Female INDICATIONS: Postbiopsy pneumothorax CLINICAL DATA: This is the patient's subsequent encounter. Patient reports that signs and symptom s have been present for 1 day and indicates a pain score of 0/0. MEDICAL/SURGICAL HISTORY: Left lung biopsy COMPARISON: No prior exams available for comparison. DEVICE(S): Vaseline occlusive dressing gauze+silk tape PROCEDURE: 1. Chest tube removal. Using aseptic technique the previously placed chest tube was easily removed in one piece and Vaseline gauze and sterile dressing was applied. Chest radiograph is to be obtained. CONCLUSION: 1. Uncomplicated left chest tube removal. Electronically signed by: Hamilton Lees MD 09/04/2017 11:19 AM EDT
== END 2017-09-03 17:49 | disposition home or self-care (01) ==
LOC: HRAD 06:14 → HRIP 06:26 → N07B 18:25 → HRAD 09-03 17:49
PROVIDERS: ATTEND Hospitalist
DX: J18.1 Lobar pneumonia, unspecified organism (principal); J95.811 Postprocedural pneumothorax; D69.6 Thrombocytopenia, unspecified; C85.90 Non-Hodgkin lymphoma, unspecified, unspecified site; J44.0 Chronic obstructive pulmonary disease with (acute) lower respiratory infection; G47.30 Sleep apnea, unspecified; Z87.891 Personal history of nicotine dependence; Z88.2 Allergy status to sulfonamides
CPT/HCPCS: 32405; 32557; 71045; 77012; 80048; 83735; 85027; 87015; 87070; 87102; 87116; 87176; 87205; 87206; 88305; 88312; 94150; 99152; 99153; C1729; C1769; J2250; J3010; J7030; 88184; 88185